=== PATIENT | female | born 1980 | race Hispanic/Latino ===

== ENCOUNTER 2019-08-19 07:12 | Inpatient (IN) | payer OTHER ==
[2019-08-16 11:45] LABS: BASOPHILS % (AUTO) 0.7 % (0.0-5.0); EOSINOPHILS % (AUTO) 0.7 % (0.0-8.0); HEMATOCRIT 41.3 % (36-48); MEAN CORPUSCULAR HEMOGLOBIN 23.1 pg (27.0-33.0); MEAN CORPUSCULAR VOLUME 77.1 fL (79-99); MONOCYTES % (AUTO) 5.2 % (3.0-13.0); NEUTROPHILS % (AUTO) 72.1 % (40.0-77.0); PLATELET COUNT (AUTO) 367 K/uL (130-400); RED BLOOD CELL COUNT(AUTO) 5.36 MIL/uL (4.00-5.50); RED CELL DISTRIBUTION WIDTH 17.1 % (11.0-15.5); WHITE BLOOD COUNT (AUTO) 10.4 K/uL (4.8-10.8)
[2019-08-16 11:48] LABS: APPEARANCE,URINE TURBID (CLEAR); BILIRUBIN,URINE NEGATIVE (NEGATIVE); COLOR,URINE YELLOW (YELLOW); GLUCOSE, URINE (UA) NEGATIVE (NEGATIVE); KETONES,URINE NEGATIVE (NEGATIVE); LEUKOCYTE ESTERASE ,URINE MODERATE (NEGATIVE); NITRATE,URINE NEGATIVE (NEGATIVE); OCCULT BLOOD,URINE LARGE (NEGATIVE); PH,URINE 6.5 (5.0-8.0); PROTEIN,URINE 100 mg/dL (NEGATIVE); UROBILINOGEN,URINE 0.2 mg/dL (0.2-1.0)
[2019-08-16 11:57] LABS: CREATININE 1.1 mg/dL (0.5-1.5); POTASSIUM 3.8 mmol/L (3.5-5.1)
[2019-08-16 12:08] LABS: BACTERIA,URINE Many /HPF (None Seen); SQUAMOUS EPITHELIAL CELL,UR Few /HPF (0-2); WBC,URINE TNTC /HPF (0-1)
[2019-08-18 13:46] VITALS: BP 140/73
--- NOTE | 2019-08-18 15:03 | NUR ---
UA AND ABNORMAL LABS OK PER DR. MEEK
[~2019-08-19] VITALS: Ht 152.4 cm; Wt 161.2 kg
[2019-08-19] VITALS (50 sets, daily range): BP systolic 82–159; BP diastolic 38–107
[~2019-08-19 07:12] MED LIST: CEFAZOLIN SODIUM 1 GM VIAL IVP SCH; GENTAMICIN 80 MG/NS 100 ML PB 100 ML IV SCH; MEROPENEM 1 GM VIAL IVP SCH; NITR100C PO
[2019-08-19] MEDS ORDERED: LACTATED RINGERS 1000ML 1,000 ML IV ONE (08:40)
[2019-08-19] MEDS ORDERED: IOHEXOL-350 50ML VIAL IV ONE (08:56)
[2019-08-19] MEDS ORDERED: LIDOCAINE PF 2% 5ML ABBOJECT ONE (10:41)
[2019-08-19] MEDS ORDERED: MIDAZOLAM HCL 1 MG/ML 2ML VIAL ONE (10:41)
[2019-08-19] MEDS ORDERED: PROPOFOL 10 MG/ML 20ML VIAL IV ONE (10:41)
[2019-08-19] MEDS ORDERED: SUCCINYLCHOLINE CHLORIDE 20 MG/ML 10 ML VIAL ONE (10:41)
[2019-08-19] MEDS ORDERED: ONDANSETRON HCL 4 MG/2 ML VIAL ONE ×3 (10:41→17:47)
[2019-08-19] MEDS ORDERED: FENTANYL CITRATE PF 50 MCG/1 ML 2ML VIAL ONE (10:42)
[2019-08-19] MEDS ORDERED: ROCURONIUM 10MG/1ML SYR 10 MG/ML ML ONE (11:25)
[2019-08-19] MEDS ORDERED: GLYCOPYRROLATE 1 MG/5 ML SYRINGE ONE (11:54)
[2019-08-19] MEDS ORDERED: NEOSTIGMINE 5MG/5ML SYR IV ONE (11:54)
[2019-08-19] MEDS: SODIUM CHLORIDE 0.9% 1000ML 1,000 ML IV SCH ×2 (12:15→21:09)
[2019-08-19] MEDS ORDERED: MEPERIDINE-PF 25 MG/ML SYG ONE (13:20)
[2019-08-19] MEDS ORDERED: DIPHENHYDRAMINE HCL 25 MG CAPSULE PO SCH (15:30)
[2019-08-19] MEDS: MEROPENEM 1 GM VIAL IVP SCH ×2 (15:30→20:06)
[2019-08-19] MEDS ORDERED: ACETAMINOPHEN 325 MG TAB PO PRN (15:30)
[2019-08-19] MEDS ORDERED: DiphenhydrAMINE HCL 50 MG/ML VIAL IV PRN (15:30)
[2019-08-19] MEDS ORDERED: ONDANSETRON HCL 4 MG/2 ML VIAL IV PRN (18:00)
[2019-08-19] MEDS ORDERED: LACTULOSE 20 GM/30 ML UDCUP PO PRN (18:00)
[2019-08-19] MEDS ORDERED: NITROGLYCERIN 0.4 MG SL TAB SL PRN (18:00)
--- NOTE | 2019-08-19 19:25 | NUR ---
CALL SAM ON THE PHONE AND REPORTED TO HER THAT THE LACTIC ACID IS 4.2 AND THERE IS AN ORDER OF TRANSFER TO ICU BY DR LAINEZ.
[2019-08-19] MEDS ORDERED: FENTANYL CITRATE PF 50 MCG/1 ML 2ML VIAL IVP ONE (19:45)
--- NOTE | 2019-08-19 20:00 | NUR ---
SHIFT CHANGE REPORT RECEIVED PATIENT FROM MORNING SHIFT ISAIAH MARIE. PT AWAKE, ALERT, AND VERBALLY RESPONSIVE STATES FEELS VERY LIGHTHEADED AND OUT OF IT. NO C/O PAIN OR SHORTNESS OF BREATH AT THIS TIME. BP 102/50 HR 119 O2 SAT 97% RESPIRATIONS 21 AT THIS TIME PATIENT CURRENTLY RECEIVING BOLUS ORDERED PER MD. AWAITING ICU BED TO TRANSFER PATIENT PER MD ORDER. Addendum: 08/19/19 at 2125 by GILA ROBERT RN Amended: Links added.
[2019-08-19] MEDS: LACTATED RINGERS 1000ML 1,000 ML IV SCH (20:07)
[2019-08-19] MEDS: FAMOTIDINE/PF 20 MG/2 ML VIAL IV SCH (21:19)
--- NOTE | 2019-08-19 21:31 | NUR ---
TRANSFERRING TO ICU REPORT GIVEN TO REGINA MARIE. PATIENT BEING TRANSFERRED AT THIS TIME.
[2019-08-19] MEDS ORDERED: FENTANYL CITRATE PF 50 MCG/1 ML 2ML VIAL IVP PRN (21:45)
[2019-08-19 22:31] LABS: ABG BASE EXCESS -5.2 mmol/L (-2.0-3.0); ABG HCO3 18.5 mmol/L (21.0-28.0); ABG OXYGEN SATURATION 94.2 % (95.0-99.0); ABG PCO2 31 mmHg (32-45)
[2019-08-20] VITALS (27 sets, daily range): BP systolic 90–142; BP diastolic 37–64
[2019-08-20] MEDS: HYDROCODONE/ACETAMINOPHEN 5/325 MG TAB PO PRN ×2 (00:06→20:40)
--- NOTE | 2019-08-20 03:50 | NUR ---
URINE COLLECTED AND SENT TO LAB FOR URINE CULTURE.
[2019-08-20 03:51] LABS: BASOPHILS % (AUTO) 0.3 % (0.0-5.0); EOSINOPHILS % (AUTO) 1.6 % (0.0-8.0); HEMATOCRIT 32.7 % (36-48); LYMPHOCYTES % (AUTO) 2.8 % (21.0-51.0); MEAN CORPUSCULAR HEMOGLOBIN 23.6 pg (27.0-33.0); MEAN CORPUSCULAR HGB CONC 29.7 g/dL (32.0-36.0); MEAN CORPUSCULAR VOLUME 79.6 fL (79-99); MONOCYTES % (AUTO) 6.1 % (3.0-13.0); NEUTROPHILS % (AUTO) 86.6 % (40.0-77.0); PLATELET COUNT (AUTO) 230 K/uL (130-400); RED BLOOD CELL COUNT(AUTO) 4.11 MIL/uL (4.00-5.50); RED CELL DISTRIBUTION WIDTH 17.9 % (11.0-15.5); WHITE BLOOD COUNT (AUTO) 23.8 K/uL (4.8-10.8)
[2019-08-20 04:17] LABS: ALBUMIN 2.1 g/dL (3.5-5.0); MAGNESIUM 1.5 mg/dL (1.80-2.40); POTASSIUM 3.8 mmol/L (3.5-5.1)
[2019-08-20] MEDS: SODIUM CHLORIDE 0.9% 1000ML 1,000 ML IV SCH ×2 (05:12→11:52)
[2019-08-20] MEDS: MEROPENEM 1 GM VIAL IVP SCH ×3 (06:39→23:30)
[2019-08-20] MEDS: LACTATED RINGERS 1000ML 1,000 ML IV SCH (08:54)
[2019-08-20] MEDS ORDERED: MAGNESIUM 2GM PREMIX 50ML 50 ML IV PRN (09:30)
[2019-08-20] MEDS ORDERED: MAGNESIUM 2GM PREMIX 50ML 50 ML IV ONE (09:31)
[2019-08-20] MEDS: FAMOTIDINE/PF 20 MG/2 ML VIAL IV SCH ×2 (09:34→20:40)
[2019-08-20] MEDS: ENOXAPARIN SODIUM 30 MG/0.3 ML SQ SCH (09:35)
--- NOTE | 2019-08-20 14:49 | NUR ---
INITIAL SW spoke to patient's twin sister, Eli Corcoran, [phone]. Sister informed SW that patient lives alone but she has been staying with patient since start of COVID virus. No home services or DME. 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 Patient is able to complete ADL's independently and drives. Sister states that she is not sure who patient's PCP is. Pharmacy is [facility] located on [address]. DCP is home. Addendum: 08/20/19 at 1452 by ZAFAR ANAND SS Amended: Links added.
--- NOTE | 2019-08-20 15:20 | NUR ---
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 CM called office Dr. Jackson - they states they had results of a UA done 08/15; request to fax here culture done hereon 08/17 i show no further result. Expect dc Friday to aiu ---or Friday w oral abx.
[2019-08-21] VITALS: BP 124/55
[2019-08-21 03:42] LABS: BASOPHILS % (AUTO) 0.2 % (0.0-5.0); EOSINOPHILS % (AUTO) 1.2 % (0.0-8.0); HEMATOCRIT 31.4 % (36-48); MEAN CORPUSCULAR HEMOGLOBIN 23.6 pg (27.0-33.0); MEAN CORPUSCULAR HGB CONC 30.3 g/dL (32.0-36.0); MEAN CORPUSCULAR VOLUME 78.1 fL (79-99); MONOCYTES % (AUTO) 6.1 % (3.0-13.0); NEUTROPHILS % (AUTO) 85.6 % (40.0-77.0); PLATELET COUNT (AUTO) 196 K/uL (130-400); RED BLOOD CELL COUNT(AUTO) 4.02 MIL/uL (4.00-5.50); RED CELL DISTRIBUTION WIDTH 17.8 % (11.0-15.5); WHITE BLOOD COUNT (AUTO) 11.9 K/uL (4.8-10.8)
[2019-08-21 04:00] VITALS: BP 127/52
[2019-08-21 04:03] LABS: BILIRUBIN,TOTAL 0.7 mg/dL (0.2-1.0); CREATININE 1.5 mg/dL (0.5-1.5); POTASSIUM 3.8 mmol/L (3.5-5.1); TOTAL PROTEIN, SERUM 6.3 g/dL (6.0-8.3)
[2019-08-21] MEDS: MEROPENEM 1 GM VIAL IVP SCH ×2 (06:04→16:35)
[2019-08-21 08:00] VITALS: BP 131/73
[2019-08-21] MEDS: FAMOTIDINE/PF 20 MG/2 ML VIAL IV SCH ×2 (10:11→21:03)
[2019-08-21] MEDS: ENOXAPARIN SODIUM 30 MG/0.3 ML SQ SCH (10:12)
--- NOTE | 2019-08-21 10:45 | NUR ---
Notified Dr. Stephens of patient's complaint of recent incontinence to urine and headache, unrelieved by Tylenol for the last [address] Stephens recommended Dr. Longo be contacted for incontinence and received telephone order for Toradol 30 mg IV once followed by 500 mL bolus of NS.
--- NOTE | 2019-08-21 10:56 | NUR ---
Notified Dr. Longo of patient's report of bladder discomfort while in sitting position, and urinary incontinence. Per Dr. Longo, remove ureter stent by nursing staff. Notified Nahid Solis RN and Nahid Alfonso RN, [employer] for assistance.
[2019-08-21] MEDS ORDERED: KETOROLAC TROMETHAMINE 30MG/ML IV SCH (11:00)
[2019-08-21] MEDS ORDERED: SODIUM CHLORIDE 0.9% 500ML 500 ML IV ONE (11:27)
[2019-08-21 16:00] VITALS: BP 120/83
[2019-08-21 19:38] VITALS: BP 139/74
[2019-08-21 23:34] VITALS: BP 144/67
[2019-08-22] MEDS: MEROPENEM 1 GM VIAL IVP SCH ×3 (00:13→15:45)
[2019-08-22 03:26] VITALS: BP 131/60
[2019-08-22 05:08] LABS: HEMATOCRIT 29.5 % (36-48); MEAN CORPUSCULAR HEMOGLOBIN 23.7 pg (27.0-33.0); MEAN CORPUSCULAR HGB CONC 30.8 g/dL (32.0-36.0); MEAN CORPUSCULAR VOLUME 76.8 fL (79-99); PLATELET COUNT (AUTO) 197 K/uL (130-400); RED BLOOD CELL COUNT(AUTO) 3.84 MIL/uL (4.00-5.50); WHITE BLOOD COUNT (AUTO) 8.2 K/uL (4.8-10.8)
[2019-08-22 05:28] LABS: BAND NEUTROPHILS % (MANUAL) 12 % (0-2); EOSINOPHILS % (MANUAL) 2 % (1-6); LYMPHOCYTES % (MANUAL) 19 % (22-44); MAN.DIFF COMMENT-IMPRESSION MANUAL DIFFERENTIAL; MONOCYTES % (MANUAL) 8 % (2-9); PLATELET MORPHOLOGY COMMENT ADEQUATE; SEGMENTED NEUTROPHILS % 59 % (40-70)
[2019-08-22 05:43] LABS: BILIRUBIN,TOTAL 0.4 mg/dL (0.2-1.0); CREATININE 1.3 mg/dL (0.5-1.5); POTASSIUM 3.6 mmol/L (3.5-5.1); TOTAL PROTEIN, SERUM 6.3 g/dL (6.0-8.3)
[2019-08-22 08:00] VITALS: BP 147/81
[2019-08-22] MEDS: ENOXAPARIN SODIUM 30 MG/0.3 ML SQ SCH (08:15)
[2019-08-22] MEDS: FAMOTIDINE/PF 20 MG/2 ML VIAL IV SCH (08:15)
[2019-08-22 11:00] VITALS: BP 147/77
[2019-08-22 16:00] VITALS: BP 152/87
--- NOTE | 2019-08-22 17:53 | NUR ---
Discharge instructions, follow up recommendations and prescriptions reviewed. Patient verbalized undestanding. PIV to Rt arm removed, bleeding controlled, and dressing applied. Patient's belongings returned from Security. Patient to be assisted to emergency entrance by aide and wheelchair.
== END 2019-08-22 18:33 | disposition home or self-care (01) | DRG 854 ==
LOC: DAH 07:12 → UNDOADMIN 15:16 → DAH 15:16 → EDHIP 15:16 → 4CH 15:16 → 2BH 21:44 → 4CH 08-20 11:28
PROVIDERS: ADMIT Internal Medicine; ATTEND Internal Medicine
PROC: 0TP98DZ Removal of Intraluminal Device from Ureter, Via Natural or Artificial Opening Endoscopic (ICD-10-PCS; 2019-08-19)
PROC: 0T778DZ Dilation of Left Ureter with Intraluminal Device, Via Natural or Artificial Opening Endoscopic (ICD-10-PCS; principal; 2019-08-19 11:10)
PROC: 0TC48ZZ Extirpation of Matter from Left Kidney Pelvis, Via Natural or Artificial Opening Endoscopic (ICD-10-PCS; 2019-08-19 11:10)
PROC: 5A09357 Assistance with Respiratory Ventilation, Less than 24 Consecutive Hours, Continuous Positive Airway Pressure (ICD-10-PCS; 2019-08-21)
PROC: 5A09357 Assistance with Respiratory Ventilation, Less than 24 Consecutive Hours, Continuous Positive Airway Pressure (ICD-10-PCS; 2019-08-22)
DX: A41.9 Sepsis, unspecified organism (principal); N20.1 Calculus of ureter; N39.0 Urinary tract infection, site not specified; Z68.44 Body mass index [BMI] 60.0-69.9, adult; N32.1 Vesicointestinal fistula; N20.0 Calculus of kidney; E66.01 Morbid (severe) obesity due to excess calories; G47.33 Obstructive sleep apnea (adult) (pediatric); Z86.19 Personal history of other infectious and parasitic diseases
CPT/HCPCS: 36415; 36600; 71045; 74018; 80048; 80053; 81001; 82360; 82803; 82948; 83605; 83735; 84145; 84703; 85025; 87040; 87088; 94660; 96365; A4354; C1758; C1769; C2617; G0378; J0330; J1580; J1650; J1885; J2001; J2175; J2185; J2250; J2405; J2704; J2710; J3010; J3475; J3490; J7030; J7040; J7120; Q9967

== ENCOUNTER 2020-08-04 07:03 | Day surgery (SDC) | payer BC, OTHER ==
[~2020-08-04] VITALS: Ht 152.4 cm; Wt 157.4 kg
[~2020-08-04 07:03] MED LIST changes: -CEFAZOLIN SODIUM 1 GM VIAL IVP SCH; -GENTAMICIN 80 MG/NS 100 ML PB 100 ML IV SCH; -MEROPENEM 1 GM VIAL IVP SCH; -NITR100C PO; +SODIUM CHLORIDE 0.9% 500ML 500 ML IV SCH
[2020-08-04] MEDS ORDERED: SODIUM CHLORIDE 0.9% 1000ML 1,000 ML IV ONE (08:01)
[2020-08-04] MEDS ORDERED: CEFAZOLIN SODIUM 1 GM VIAL ONE (08:01)
[2020-08-04] MEDS ORDERED: CEFAZOLIN SODIUM 1 GM VIAL IVP SCH (08:15)
[2020-08-04 08:24] VITALS: BP 145/67
[2020-08-04] MEDS ORDERED: PROPOFOL 10 MG/ML 20ML VIAL IV ONE (09:42)
[2020-08-04] MEDS ORDERED: MIDAZOLAM HCL 1 MG/ML 2ML VIAL ONE (09:42)
[2020-08-04 10:09] VITALS: BP 127/69
[2020-08-04 10:15] VITALS: BP 105/53
[2020-08-04 10:19] VITALS: BP 100/40
[2020-08-04 10:24] VITALS: BP 117/76
== END 2020-08-04 12:30 ==
LOC: DAH 07:03
PROVIDERS: ATTEND Surgery
DX: K57.32 Diverticulitis of large intestine without perforation or abscess without bleeding (principal); Z20.822 Contact with and (suspected) exposure to COVID-19; K57.30 Diverticulosis of large intestine without perforation or abscess without bleeding; E66.01 Morbid (severe) obesity due to excess calories; N32.1 Vesicointestinal fistula; Z87.442 Personal history of urinary calculi; Z68.44 Body mass index [BMI] 60.0-69.9, adult; Z82.5 Family history of asthma and other chronic lower respiratory diseases; Z98.890 Other specified postprocedural states; Z79.899 Other long term (current) drug therapy
CPT/HCPCS: 36415; 45378; 74270; 84703; A4215 ×2; A4221; A4222; A4223; A4606; A4620; A4657; A4663; A6260; C9803; J2250; J2704; J7030; U0003; J0690

== ENCOUNTER 2020-08-21 09:10 | Inpatient (IN) | payer BC ==
[2020-08-14 16:40] LABS: BASOPHILS % (AUTO) 0.4 % (0.0-5.0); EOSINOPHILS % (AUTO) 0.6 % (0.0-8.0); HEMATOCRIT 41.3 % (36-48); MEAN CORPUSCULAR HGB CONC 30.5 g/dL (32.0-36.0); MEAN CORPUSCULAR VOLUME 78.8 fL (79-99); MONOCYTES % (AUTO) 4.9 % (3.0-13.0); NEUTROPHILS % (AUTO) 73.7 % (40.0-77.0); PLATELET COUNT (AUTO) 369 K/uL (130-400); RED BLOOD CELL COUNT(AUTO) 5.24 MIL/uL (4.00-5.50); RED CELL DISTRIBUTION WIDTH 16.9 % (11.0-15.5); WHITE BLOOD COUNT (AUTO) 13.6 K/uL (4.8-10.8)
[2020-08-14 16:51] LABS: POTASSIUM 4.4 mmol/L (3.5-5.1)
[2020-08-14 16:52] LABS: INR 1.09 (0.85-1.15); PROTHROMBIN TIME 11.8 SEC (9.6-11.6)
[2020-08-14 16:53] LABS: PARTIAL THROMBOPLASTIN TIME 29.5 SEC (26.3-35.5)
[2020-08-18 15:56] VITALS: BP 124/63
[2020-08-21] VITALS (24 sets, daily range): BP systolic 102–147; BP diastolic 40–79
[~2020-08-21] VITALS: Ht 152.4 cm; Wt 153.0 kg
[~2020-08-21 09:10] MED LIST changes: +CEFAZOLIN SODIUM 1 GM VIAL IVP SCH; -SODIUM CHLORIDE 0.9% 500ML 500 ML IV SCH
[2020-08-21] MEDS ORDERED: LACTATED RINGERS 1000ML 1,000 ML IV ONE (09:37)
[2020-08-21] MEDS ORDERED: PROPOFOL 10 MG/ML 20ML VIAL IV ONE (11:09)
[2020-08-21] MEDS ORDERED: LIDOCAINE PF 100MG/5ML (2%) SYRINGE 5ML ONE (11:09)
[2020-08-21] MEDS ORDERED: ROCURONIUM 10MG/1ML SYR 10 MG/ML ML ONE ×2 (11:09→12:58)
[2020-08-21] MEDS ORDERED: SUCCINYLCHOLINE 200MG/10ML SYR ONE (11:09)
[2020-08-21] MEDS ORDERED: FENTANYL CITRATE PF 50 MCG/1 ML 5ML AMP IV ONE ×3 (11:11→16:26)
[2020-08-21] MEDS ORDERED: MIDAZOLAM HCL 1 MG/ML 2ML VIAL ONE (11:11)
[2020-08-21] MEDS ORDERED: DEXAMETHASONE SOD PHOSPHATE 10MG/ML 1ML VIAL ONE (14:42)
[2020-08-21] MEDS ORDERED: HYDROCODONE/ACETAMINOPHEN 5/325 MG TAB PO PRN (16:15)
[2020-08-21] MEDS: CEFAZOLIN SODIUM 1 GM VIAL IVP SCH ×2 (16:15→23:04)
[2020-08-21] MEDS ORDERED: GLYCOPYRROLATE 1 MG/5 ML SYRINGE ONE (16:17)
[2020-08-21] MEDS ORDERED: NEOSTIGMINE 5MG/5ML SYR IV ONE (16:17)
[2020-08-21] MEDS ORDERED: KETOROLAC 30MG VIAL (30MG/ML) ONE (17:02)
[2020-08-21] MEDS ORDERED: ONDANSETRON 4MG INJ ONE (17:02)
[2020-08-21] MEDS ORDERED: MEPERIDINE-PF 25 MG/ML SYG ONE (17:25)
[2020-08-21] MEDS: LACTATED RINGERS 1000ML 1,000 ML IV SCH ×2 (18:53→23:58)
[2020-08-21] MEDS: KETOROLAC 30MG VIAL (30MG/ML) IM PRN (20:23)
[2020-08-21] MEDS: METRONIDAZOLE 500MG/100ML BAG 100 ML IVPB SCH (23:04)
[2020-08-22 04:00] VITALS: BP 122/74
[2020-08-22] MEDS: KETOROLAC 30MG VIAL (30MG/ML) IM PRN ×2 (04:09→20:49)
[2020-08-22] MEDS: LACTATED RINGERS 1000ML 1,000 ML IV SCH ×2 (04:09→16:54)
[2020-08-22 05:49] LABS: CREATININE 1.1 mg/dL (0.5-1.5); POTASSIUM 4.6 mmol/L (3.5-5.1)
[2020-08-22 06:18] LABS: HEMATOCRIT 36.4 % (36-48); MEAN CORPUSCULAR HEMOGLOBIN 23.7 pg (27.0-33.0); MEAN CORPUSCULAR HGB CONC 30.5 g/dL (32.0-36.0); MEAN CORPUSCULAR VOLUME 77.6 fL (79-99); PLATELET COUNT (AUTO) 393 K/uL (130-400); RED BLOOD CELL COUNT(AUTO) 4.69 MIL/uL (4.00-5.50); RED CELL DISTRIBUTION WIDTH 16.3 % (11.0-15.5); WHITE BLOOD COUNT (AUTO) 16.6 K/uL (4.8-10.8)
[2020-08-22] MEDS: METRONIDAZOLE 500MG/100ML BAG 100 ML IVPB SCH (06:31)
[2020-08-22 06:57] LABS: BAND NEUTROPHILS % (MANUAL) 6 % (0-2); LYMPHOCYTES % (MANUAL) 7 % (22-44); MAN.DIFF COMMENT-IMPRESSION MANUAL DIFFERENTIAL; MONOCYTES % (MANUAL) 4 % (2-9); PLATELET MORPHOLOGY COMMENT ADEQUATE; REACTIVE LYMPHOCYTES 1 % (0-0); SEGMENTED NEUTROPHILS % 82 % (40-70)
[2020-08-22] MEDS: ENOXAPARIN SODIUM 40 MG/0.4 ML SYRINGE SQ SCH (08:49)
[2020-08-22 08:54] VITALS: BP 119/66
[2020-08-22] MEDS: MORPHINE 4 MG SYG IV PRN ×2 (10:41→16:40)
[2020-08-22 11:21] VITALS: BP 98/52
[2020-08-22 16:28] VITALS: BP 119/50
[2020-08-22 20:00] VITALS: BP 117/67
[2020-08-23] VITALS (7 sets, daily range): BP systolic 111–147; BP diastolic 57–77
[2020-08-23] MEDS: LACTATED RINGERS 1000ML 1,000 ML IV SCH ×3 (00:24→16:11)
[2020-08-23] MEDS: ONDANSETRON 4MG INJ IVP PRN ×2 (03:20→19:54)
[2020-08-23] MEDS: KETOROLAC 30MG VIAL (30MG/ML) IM PRN ×3 (05:47→22:17)
[2020-08-23] MEDS: ENOXAPARIN SODIUM 40 MG/0.4 ML SYRINGE SQ SCH (08:47)
[2020-08-23] MEDS ORDERED: PANTOPRAZOLE 40 MG/VIAL IVP SCH (09:11)
[2020-08-23 09:45] LABS: HEMATOCRIT 35.4 % (36-48); MEAN CORPUSCULAR HEMOGLOBIN 24.3 pg (27.0-33.0); MEAN CORPUSCULAR HGB CONC 30.2 g/dL (32.0-36.0); MEAN CORPUSCULAR VOLUME 80.5 fL (79-99); RED BLOOD CELL COUNT(AUTO) 4.4 MIL/uL (4.00-5.50); RED CELL DISTRIBUTION WIDTH 16.5 % (11.0-15.5); WHITE BLOOD COUNT (AUTO) 13.2 K/uL (4.8-10.8)
[2020-08-23 11:13] LABS: ALBUMIN 2.2 g/dL (3.5-5.0); BILIRUBIN,TOTAL 0.4 mg/dL (0.2-1.0); CREATININE 1.2 mg/dL (0.5-1.5); POTASSIUM 4.1 mmol/L (3.5-5.1); TOTAL PROTEIN, SERUM 6.6 g/dL (6.0-8.3)
[2020-08-23] MEDS ORDERED: SIMETHICONE 80 MG TAB.CHEW ONE (22:12)
[2020-08-23] MEDS ORDERED: SIMETHICONE 80 MG TAB.CHEW PO ONE (22:15)
[2020-08-24] MEDS: LACTATED RINGERS 1000ML 1,000 ML IV SCH ×2 (00:12→08:21)
[2020-08-24 04:21] VITALS: BP 128/75
[2020-08-24 07:30] VITALS: BP 123/76
[2020-08-24] MEDS: PANTOPRAZOLE 40 MG/VIAL IVP SCH (08:21)
[2020-08-24] MEDS: ENOXAPARIN SODIUM 40 MG/0.4 ML SYRINGE SQ SCH (08:23)
[2020-08-24] MEDS ORDERED: IOHEXOL 350 MG/ML 100ML INFUS..BTL IV ONE (08:51)
[2020-08-24] MEDS ORDERED: ACETAMINOPHEN WITH CODEINE 1 TAB TAB PO PRN (10:00)
[2020-08-24] MEDS: KETOROLAC 30MG VIAL (30MG/ML) IM PRN ×2 (10:56→21:30)
[2020-08-24 11:00] VITALS: BP 125/75
[2020-08-24] MEDS ORDERED: SIMETHICONE 80 MG TAB.CHEW PO PRN (12:45)
[2020-08-24 15:38] VITALS: BP 110/56
[2020-08-24 20:12] VITALS: BP 138/66
[2020-08-24 23:32] VITALS: BP 123/61
[2020-08-25] MEDS: LACTATED RINGERS 1000ML 1,000 ML IV SCH (01:03)
[2020-08-25 04:09] VITALS: BP 137/73
[2020-08-25 07:30] VITALS: BP 134/73
[2020-08-25] MEDS: KETOROLAC 30MG VIAL (30MG/ML) IM PRN ×2 (07:37→22:51)
[2020-08-25] MEDS: PANTOPRAZOLE 40 MG/VIAL IVP SCH (07:38)
[2020-08-25] MEDS: ENOXAPARIN SODIUM 40 MG/0.4 ML SYRINGE SQ SCH (07:38)
[2020-08-25 11:00] VITALS: BP 126/79
[2020-08-25 16:00] VITALS: BP 133/44
[2020-08-25 20:00] VITALS: BP 120/69
[2020-08-26 04:00] VITALS: BP 128/73
[2020-08-26 07:00] VITALS: BP 119/72
[2020-08-26] MEDS: PANTOPRAZOLE 40 MG/VIAL IVP SCH (08:56)
[2020-08-26] MEDS: KETOROLAC 30MG VIAL (30MG/ML) IM PRN (08:57)
[2020-08-26] MEDS: ENOXAPARIN SODIUM 40 MG/0.4 ML SYRINGE SQ SCH (09:00)
[2020-08-26 11:30] VITALS: BP 119/62
[2020-08-26 16:00] VITALS: BP 135/64
[2020-08-26 20:12] VITALS: BP 126/74
[2020-08-26] MEDS ORDERED: FAMOTIDINE 20MG VIAL IV SCH (21:00)
[2020-08-27 00:12] VITALS: BP 132/63
[2020-08-27] MEDS: IBUPROFEN 800 MG TAB PO PRN ×2 (01:53→12:26)
[2020-08-27 04:12] VITALS: BP 120/72
[2020-08-27 08:00] VITALS: BP 114/57
[2020-08-27] MEDS: ENOXAPARIN SODIUM 40 MG/0.4 ML SYRINGE SQ SCH (08:50)
[2020-08-27] MEDS ORDERED: FAMOTIDINE 20MG TAB PO SCH (09:00)
[2020-08-27 12:00] VITALS: BP 111/59
[2020-08-27 16:00] VITALS: BP 129/56
== END 2020-08-27 18:00 | disposition home or self-care (01) | DRG 654 ==
LOC: DAHIP 09:10 → 3DH 17:22
PROVIDERS: ADMIT Surgery; ATTEND Surgery
PROC: 0DBN0ZZ Excision of Sigmoid Colon, Open Approach (ICD-10-PCS; principal; 2020-08-21 12:15)
PROC: 0TQB0ZZ Repair Bladder, Open Approach (ICD-10-PCS; 2020-08-21 12:15)
PROC: 0DJD8ZZ Inspection of Lower Intestinal Tract, Via Natural or Artificial Opening Endoscopic (ICD-10-PCS; 2020-08-21 12:15)
PROC: BT141ZZ Fluoroscopy of Kidneys, Ureters and Bladder using Low Osmolar Contrast (ICD-10-PCS; 2020-08-24)
DX: N32.1 Vesicointestinal fistula (principal); K57.20 Diverticulitis of large intestine with perforation and abscess without bleeding; Z68.44 Body mass index [BMI] 60.0-69.9, adult; E66.01 Morbid (severe) obesity due to excess calories; Z20.822 Contact with and (suspected) exposure to COVID-19; Z87.440 Personal history of urinary (tract) infections
CPT/HCPCS: 36415; 45330; 74400; 80048; 80053; 82570; 84702; 85025; 85027; 85610; 85730; 97039; A4344; C9113; G0378; J0330; J0690; J1100; J1650; J1885; J2001; J2175; J2250; J2270; J2405; J2704; J2710; J3010; J3490; J7030; J7120; Q9967; U0003

== ENCOUNTER 2020-08-28 13:05 | Emergency (ER) | payer BC | END 2020-08-28 15:06 | disposition home or self-care (01) | LOC: EDH 13:05 | DX: S31.109A Unspecified open wound of abdominal wall, unspecified quadrant without penetration into peritoneal cavity, initial encounter (principal); Z48.00 Encounter for change or removal of nonsurgical wound dressing; X58.XXXA Exposure to other specified factors, initial encounter; Y93.89 Activity, other specified; Y92.89 Other specified places as the place of occurrence of the external cause; Y99.8 Other external cause status | CPT/HCPCS: 99281 ==

== ENCOUNTER 2020-08-31 00:06 | Inpatient (IN) | payer BC ==
[~2020-08-31] VITALS: Ht 152.4 cm; Wt 147.8 kg
[2020-08-31 01:45] LABS: CREATININE 1.1 mg/dL (0.5-1.5); POTASSIUM 3.8 mmol/L (3.5-5.1)
[2020-08-31 01:50] LABS: ALBUMIN 2.3 g/dL (3.5-5.0); BILIRUBIN,TOTAL 0.5 mg/dL (0.2-1.0); TOTAL PROTEIN, SERUM 6.4 g/dL (6.0-8.3)
[2020-08-31 02:16] LABS: BASOPHILS % (AUTO) 0.3 % (0.0-5.0); EOSINOPHILS % (AUTO) 0.9 % (0.0-8.0); HEMATOCRIT 31.8 % (36-48); LYMPHOCYTES % (AUTO) 11.4 % (21.0-51.0); MEAN CORPUSCULAR HGB CONC 29.6 g/dL (32.0-36.0); MEAN CORPUSCULAR VOLUME 77.9 fL (79-99); PLATELET COUNT (AUTO) 424 K/uL (130-400); RED BLOOD CELL COUNT(AUTO) 4.08 MIL/uL (4.00-5.50); RED CELL DISTRIBUTION WIDTH 16.8 % (11.0-15.5); WHITE BLOOD COUNT (AUTO) 12.2 K/uL (4.8-10.8)
[2020-08-31] MEDS ORDERED: ZOSYN 3.375GM+NS 50ML 50 ML IV ONE (04:00)
[2020-08-31] MEDS ORDERED: 0.9%NACL 1000ML 1,000 ML IV ONE (04:01)
[2020-08-31] MEDS ORDERED: ACETAMINOPHEN 325 MG TAB PO PRN (07:30)
[2020-08-31] MEDS ORDERED: ONDANSETRON 4MG INJ IVP PRN (07:30)
[2020-08-31] MEDS ORDERED: MORPHINE 2 MG SYG IVP PRN (07:30)
[2020-08-31] MEDS ORDERED: DIATR MEGLU/DIATRIZOATE SODIUM 30 ML BOTTLE ONE (09:40)
[2020-08-31 12:45] VITALS: BP 118/47
[2020-08-31] MEDS: ZOSYN 3.375GM+NS 50ML 50 ML IV SCH ×2 (14:27→23:31)
[2020-08-31] MEDS ORDERED: ENOX40DI8 SQ (14:46)
[2020-08-31] MEDS ORDERED: DOCU-116 PO (14:46)
[2020-08-31] MEDS ORDERED: POLY17PO4 PO (14:46)
[2020-08-31] MEDS ORDERED: IOHEXOL 350 MG/ML 100ML INFUS..BTL IV ONE (14:58)
[2020-08-31] MEDS: LUBIPROSTONE 24 MCG CAP PO SCH (17:00)
[2020-08-31 17:13] VITALS: BP 107/45
[2020-08-31 20:00] VITALS: BP 100/46
[2020-09-01 00:01] VITALS: BP 97/50
[2020-09-01] MEDS: 0.9%NACL 1000ML 1,000 ML IV SCH ×2 (02:45→10:55)
[2020-09-01 04:00] VITALS: BP 113/60
[2020-09-01 04:52] LABS: BASOPHILS % (AUTO) 0.3 % (0.0-5.0); HEMATOCRIT 31.6 % (36-48); LYMPHOCYTES % (AUTO) 13.4 % (21.0-51.0); MEAN CORPUSCULAR HEMOGLOBIN 23.4 pg (27.0-33.0); MEAN CORPUSCULAR HGB CONC 29.4 g/dL (32.0-36.0); MEAN CORPUSCULAR VOLUME 79.6 fL (79-99); MONOCYTES % (AUTO) 6.1 % (3.0-13.0); NEUTROPHILS % (AUTO) 77.1 % (40.0-77.0); PLATELET COUNT (AUTO) 441 K/uL (130-400); RED BLOOD CELL COUNT(AUTO) 3.97 MIL/uL (4.00-5.50); RED CELL DISTRIBUTION WIDTH 16.8 % (11.0-15.5); WHITE BLOOD COUNT (AUTO) 10.3 K/uL (4.8-10.8)
[2020-09-01 05:05] LABS: POTASSIUM 3.7 mmol/L (3.5-5.1)
[2020-09-01] MEDS: ZOSYN 3.375GM+NS 50ML 50 ML IV SCH ×2 (07:30→16:15)
[2020-09-01 08:00] VITALS: BP 99/43
[2020-09-01] MEDS: LUBIPROSTONE 24 MCG CAP PO SCH ×2 (08:00→16:16)
[2020-09-01] MEDS: ENOXAPARIN SODIUM 40 MG/0.4 ML SYRINGE SQ SCH ×2 (09:00→16:15)
[2020-09-01 12:00] VITALS: BP 107/59
[2020-09-01 16:00] VITALS: BP 115/60
[2020-09-01 19:25] VITALS: BP 102/43
[2020-09-02] VITALS (7 sets, daily range): BP systolic 95–120; BP diastolic 49–57
[2020-09-02] MEDS: ZOSYN 3.375GM+NS 50ML 50 ML IV SCH ×3 (02:13→17:05)
[2020-09-02] MEDS: 0.9%NACL 1000ML 1,000 ML IV SCH ×3 (02:31→18:25)
[2020-09-02] MEDS ORDERED: PHARMACY COMMUNICATION MISC SCH (04:15)
[2020-09-02] MEDS: LUBIPROSTONE 24 MCG CAP PO SCH ×2 (08:00→17:00)
[2020-09-02] MEDS: ENOXAPARIN SODIUM 40 MG/0.4 ML SYRINGE SQ SCH (09:52)
[2020-09-02 10:55] LABS: BASOPHILS % (AUTO) 0.5 % (0.0-5.0); HEMATOCRIT 33.2 % (36-48); LYMPHOCYTES % (AUTO) 15.5 % (21.0-51.0); MEAN CORPUSCULAR HEMOGLOBIN 24.2 pg (27.0-33.0); MEAN CORPUSCULAR HGB CONC 30.4 g/dL (32.0-36.0); MEAN CORPUSCULAR VOLUME 79.4 fL (79-99); MONOCYTES % (AUTO) 5.9 % (3.0-13.0); NEUTROPHILS % (AUTO) 75.2 % (40.0-77.0); PLATELET COUNT (AUTO) 438 K/uL (130-400); RED BLOOD CELL COUNT(AUTO) 4.18 MIL/uL (4.00-5.50); RED CELL DISTRIBUTION WIDTH 16.9 % (11.0-15.5); WHITE BLOOD COUNT (AUTO) 7.8 K/uL (4.8-10.8)
[2020-09-02 11:19] LABS: POTASSIUM 3.6 mmol/L (3.5-5.1)
[2020-09-03] MEDS: ZOSYN 3.375GM+NS 50ML 50 ML IV SCH ×4 (00:22→23:46)
[2020-09-03] MEDS: 0.9%NACL 1000ML 1,000 ML IV SCH ×3 (03:54→23:46)
[2020-09-03 04:03] VITALS: BP 112/53
[2020-09-03 07:35] VITALS: BP 115/60
[2020-09-03] MEDS: LUBIPROSTONE 24 MCG CAP PO SCH ×2 (08:00→17:00)
[2020-09-03] MEDS: LACTOBACILLUS RHAMNOSUS GG 1 EACH CAP.SPRINK PO SCH (09:31)
[2020-09-03] MEDS: ENOXAPARIN SODIUM 40 MG/0.4 ML SYRINGE SQ SCH (09:31)
[2020-09-03 11:28] VITALS: BP 106/63
[2020-09-03 16:43] VITALS: BP 105/54
[2020-09-03 20:00] VITALS: BP 133/58
[2020-09-03] MEDS: DOCUSATE SODIUM 100 MG CAP PO SCH (21:00)
[2020-09-04 01:03] VITALS: BP 116/53
[2020-09-04 05:19] LABS: HEMATOCRIT 31.9 % (36-48); MEAN CORPUSCULAR HEMOGLOBIN 23.6 pg (27.0-33.0); MEAN CORPUSCULAR HGB CONC 29.5 g/dL (32.0-36.0); MEAN CORPUSCULAR VOLUME 79.9 fL (79-99); RED BLOOD CELL COUNT(AUTO) 3.99 MIL/uL (4.00-5.50); RED CELL DISTRIBUTION WIDTH 16.3 % (11.0-15.5); WHITE BLOOD COUNT (AUTO) 7.7 K/uL (4.8-10.8)
[2020-09-04 06:12] VITALS: BP 117/62
[2020-09-04 07:30] VITALS: BP 109/69
[2020-09-04] MEDS: DOCUSATE SODIUM 100 MG CAP PO SCH ×2 (09:48→21:00)
[2020-09-04] MEDS: LACTOBACILLUS RHAMNOSUS GG 1 EACH CAP.SPRINK PO SCH (09:48)
[2020-09-04] MEDS: ZOSYN 3.375GM+NS 50ML 50 ML IV SCH ×2 (09:48→16:40)
[2020-09-04] MEDS: LUBIPROSTONE 24 MCG CAP PO SCH ×2 (09:48→16:41)
[2020-09-04] MEDS: ENOXAPARIN SODIUM 40 MG/0.4 ML SYRINGE SQ SCH (09:50)
[2020-09-04 11:00] VITALS: BP 101/45
[2020-09-04 16:00] VITALS: BP 103/43
[2020-09-04 20:00] VITALS: BP 126/66
[2020-09-04] MEDS: 0.9%NACL 1000ML 1,000 ML IV SCH ×2 (20:45→21:20)
[2020-09-05 00:08] VITALS: BP 113/53
[2020-09-05] MEDS: ZOSYN 3.375GM+NS 50ML 50 ML IV SCH ×3 (00:51→16:32)
[2020-09-05 04:00] VITALS: BP 109/50
[2020-09-05 05:19] LABS: BASOPHILS % (AUTO) 0.6 % (0.0-5.0); EOSINOPHILS % (AUTO) 2.3 % (0.0-8.0); HEMATOCRIT 32.5 % (36-48); LYMPHOCYTES % (AUTO) 17.8 % (21.0-51.0); MEAN CORPUSCULAR HEMOGLOBIN 23.6 pg (27.0-33.0); MEAN CORPUSCULAR HGB CONC 30.2 g/dL (32.0-36.0); MEAN CORPUSCULAR VOLUME 78.1 fL (79-99); MONOCYTES % (AUTO) 5.7 % (3.0-13.0); PLATELET COUNT (AUTO) 478 K/uL (130-400); RED BLOOD CELL COUNT(AUTO) 4.16 MIL/uL (4.00-5.50); RED CELL DISTRIBUTION WIDTH 16.2 % (11.0-15.5); WHITE BLOOD COUNT (AUTO) 8.6 K/uL (4.8-10.8)
[2020-09-05 05:33] LABS: POTASSIUM 3.7 mmol/L (3.5-5.1)
[2020-09-05] MEDS: 0.9%NACL 1000ML 1,000 ML IV SCH ×2 (06:45→16:32)
[2020-09-05 07:30] VITALS: BP 101/49
[2020-09-05] MEDS: LUBIPROSTONE 24 MCG CAP PO SCH (08:00)
[2020-09-05] MEDS: DOCUSATE SODIUM 100 MG CAP PO SCH (09:00)
[2020-09-05] MEDS: ENOXAPARIN SODIUM 40 MG/0.4 ML SYRINGE SQ SCH (09:22)
[2020-09-05] MEDS: LACTOBACILLUS RHAMNOSUS GG 1 EACH CAP.SPRINK PO SCH (09:22)
[2020-09-05] MEDS ORDERED: LOPERAMIDE 1 MG/7.5 ML UDCUP PO SCH (09:45)
[2020-09-05 11:00] VITALS: BP 98/27
[2020-09-05 16:00] VITALS: BP 124/45
[2020-09-05 20:00] VITALS: BP 126/69
[2020-09-06] VITALS: BP 104/54
[2020-09-06] MEDS: ZOSYN 3.375GM+NS 50ML 50 ML IV SCH ×3 (00:47→16:00)
[2020-09-06] MEDS: 0.9%NACL 1000ML 1,000 ML IV SCH ×2 (02:45→13:27)
[2020-09-06 04:00] VITALS: BP 113/57
[2020-09-06 05:48] LABS: BASOPHILS % (AUTO) 0.5 % (0.0-5.0); EOSINOPHILS % (AUTO) 2.2 % (0.0-8.0); HEMATOCRIT 33.1 % (36-48); LYMPHOCYTES % (AUTO) 18.4 % (21.0-51.0); MEAN CORPUSCULAR HEMOGLOBIN 23.2 pg (27.0-33.0); MEAN CORPUSCULAR HGB CONC 29.3 g/dL (32.0-36.0); MONOCYTES % (AUTO) 5.5 % (3.0-13.0); NEUTROPHILS % (AUTO) 72.9 % (40.0-77.0); PLATELET COUNT (AUTO) 508 K/uL (130-400); RED BLOOD CELL COUNT(AUTO) 4.19 MIL/uL (4.00-5.50); RED CELL DISTRIBUTION WIDTH 16.1 % (11.0-15.5); WHITE BLOOD COUNT (AUTO) 8.4 K/uL (4.8-10.8)
[2020-09-06 05:57] LABS: CREATININE 1.1 mg/dL (0.5-1.5); POTASSIUM 3.8 mmol/L (3.5-5.1)
[2020-09-06 08:00] VITALS: BP 118/62
[2020-09-06] MEDS: LACTOBACILLUS RHAMNOSUS GG 1 EACH CAP.SPRINK PO SCH (08:35)
[2020-09-06] MEDS: ENOXAPARIN SODIUM 40 MG/0.4 ML SYRINGE SQ SCH (09:54)
[2020-09-06 12:00] VITALS: BP 93/49
[2020-09-06 16:00] VITALS: BP 116/61
== END 2020-09-06 18:30 | disposition home health service (06) | DRG 862 ==
LOC: EDH 00:06 → OBSVTOIN 09:10 → EDHIP 09:10 → 3CH 10:33
PROVIDERS: ADMIT Student in an Organized Health Care Education/Training Program; ATTEND Student in an Organized Health Care Education/Training Program
DX: T81.43XA Infection following a procedure, organ and space surgical site, initial encounter (principal); K65.1 Peritoneal abscess; Z68.44 Body mass index [BMI] 60.0-69.9, adult; K63.2 Fistula of intestine; T81.30XA Disruption of wound, unspecified, initial encounter; E66.01 Morbid (severe) obesity due to excess calories; D64.9 Anemia, unspecified; K59.00 Constipation, unspecified; B96.20 Unspecified Escherichia coli [E. coli] as the cause of diseases classified elsewhere; R53.81 Other malaise; Y83.8 Other surgical procedures as the cause of abnormal reaction of the patient, or of later complication, without mention of misadventure at the time of the procedure; Y92.89 Other specified places as the place of occurrence of the external cause; Z82.3 Family history of stroke; Z83.3 Family history of diabetes mellitus; Z82.49 Family history of ischemic heart disease and other diseases of the circulatory system
CPT/HCPCS: 36415; 74018; 74176; 74177; 74430; 80048; 80053; 84145; 85025; 85027; 85651; 86140; 87040; 87070; 87076; 87077; 87186; 87324; 97039; 99281; G0378; J1650; J2543; J7030; Q9963; Q9967

== ENCOUNTER 2020-09-12 17:07 | Emergency (ER) | payer BC ==
[~2020-09-12 17:07] MED LIST changes: -CEFAZOLIN SODIUM 1 GM VIAL IVP SCH; +DOCU-116 PO; +ENOX40DI8 SQ; +POLY17PO4 PO
[2020-09-12 17:46] LABS: APPEARANCE,URINE Clear (CLEAR); BILIRUBIN,URINE Negative (NEGATIVE); COLOR,URINE Yellow (YELLOW); GLUCOSE, URINE (UA) Negative (NEGATIVE); KETONES,URINE Negative (NEGATIVE); LEUKOCYTE ESTERASE ,URINE Moderate (NEGATIVE); NITRATE,URINE Negative (NEGATIVE); OCCULT BLOOD,URINE Small (NEGATIVE); PH,URINE 6.5 (5.0-8.0); PROTEIN,URINE Trace mg/dL (NEGATIVE); UROBILINOGEN,URINE 0.2 mg/dL (0.2-1.0)
[2020-09-12 18:14] LABS: BACTERIA,URINE Few /HPF (None Seen); RBC,URINE None Seen /HPF (0-1)
[2020-09-12 18:15] LABS: YEAST,URINE BUDDING Many /HPF (None Seen)
[2020-09-12 18:16] LABS: SQUAMOUS EPITHELIAL CELL,UR None Seen /HPF (0-2)
[2020-09-12 18:30] LABS: BASOPHILS % (AUTO) 0.6 % (0.0-5.0); EOSINOPHILS % (AUTO) 1.8 % (0.0-8.0); HEMATOCRIT 36.8 % (36-48); MEAN CORPUSCULAR HGB CONC 30.7 g/dL (32.0-36.0); MEAN CORPUSCULAR VOLUME 78.1 fL (79-99); MONOCYTES % (AUTO) 7.3 % (3.0-13.0); NEUTROPHILS % (AUTO) 68.8 % (40.0-77.0); PLATELET COUNT (AUTO) 431 K/uL (130-400); RED BLOOD CELL COUNT(AUTO) 4.71 MIL/uL (4.00-5.50); RED CELL DISTRIBUTION WIDTH 16.7 % (11.0-15.5); WHITE BLOOD COUNT (AUTO) 8.7 K/uL (4.8-10.8)
[2020-09-12 18:39] LABS: CREATININE 1.2 mg/dL (0.5-1.5)
[2020-09-12 18:44] LABS: BILIRUBIN,TOTAL 0.3 mg/dL (0.2-1.0); TOTAL PROTEIN, SERUM 7.5 g/dL (6.0-8.3)
[2020-09-12] MEDS ORDERED: CEFTRIAXONE SODIUM 1 GM ONE (18:59)
[2020-09-12] MEDS ORDERED: PHENAZOPYRIDINE HCL 200 MG TABLET ONE (19:00)
== END 2020-09-12 19:10 | disposition home or self-care (01) ==
LOC: EDH 17:07
DX: N39.0 Urinary tract infection, site not specified (principal); Z90.49 Acquired absence of other specified parts of digestive tract
CPT/HCPCS: 36415; 80053; 81001; 83690; 85025; 87088; J0696

== ENCOUNTER 2020-10-27 06:57 | Day surgery (SDC) | payer BC ==
[~2020-10-27] VITALS: Ht 149.9 cm; Wt 154.2 kg
[2020-10-27] MEDS ORDERED: SODIUM CHLORIDE 0.9% 1000ML 1,000 ML IV ONE (07:09)
[2020-10-27 07:15] VITALS: BP 108/56
[2020-10-27] MEDS ORDERED: GLYCOPYRROLATE 1 MG/5 ML SYRINGE ONE (08:42)
[2020-10-27] MEDS ORDERED: PROPOFOL 10 MG/ML 20ML VIAL IV ONE (08:42)
[2020-10-27] MEDS ORDERED: LIDOCAINE PF 100MG/5ML (2%) SYRINGE 5ML ONE (08:42)
[2020-10-27] MEDS ORDERED: KETAMINE 50MG/ML SYRINGE 50 MG/ML DISP.SYRIN IV ONE (08:43)
[2020-10-27] MEDS ORDERED: MIDAZOLAM HCL 1 MG/ML 2ML VIAL ONE (08:43)
[2020-10-27 09:00] VITALS: BP 96/50
[2020-10-27 09:05] VITALS: BP 113/63
[2020-10-27 09:10] VITALS: BP 99/70
[2020-10-27 09:15] VITALS: BP 116/61
[2020-10-27 09:30] VITALS: BP 119/65
== END 2020-10-27 09:30 | disposition home or self-care (01) ==
LOC: DAH 06:57 → ENDO 06:57
PROVIDERS: ATTEND Surgery
DX: Z43.3 Encounter for attention to colostomy (principal); Z20.822 Contact with and (suspected) exposure to COVID-19; K59.09 Other constipation; Z98.890 Other specified postprocedural states; Z90.49 Acquired absence of other specified parts of digestive tract; E66.9 Obesity, unspecified; Z68.44 Body mass index [BMI] 60.0-69.9, adult
CPT/HCPCS: 36415; 45378; 84703; 87635; A4215 ×2; A4221; A4223; A4606; A4620; A4657; A4663; C9803; J2001; J2250; J2704; J3490 ×2; J7030